=== PATIENT | female | born 1990 | race Caucasian/White ===

== ENCOUNTER 2019-04-06 09:04 | Outpatient (REF) | payer BC, SELFPAY ==
--- NOTE | 2019-04-05 08:40 | PAPFT_PTH ---
PATIENT: Dipti Rodriguez LOC: [facility] U#:[id number] AGE/SX: 28/F ROOM: RE04/06/[address]: Nisha Hackett NP : 1990 BED: DIS: 04/06/2019 SPEC #: [id number] RECD: 04/06/19 13:02 STATUS: BLANCA ALVA #: [id number] MARCELA: 04/05/19 08:[address]: Nisha Hackett NP DEPT: [facility] Cytology RECD BY: Radha Lowe ENTERED: 04/06/19 13:03 SP TYPE: PAPFT OTHR DR: Niles Arenas Tissues: 1 - CX/ENDOCX FOR PAP SMEARS Procedures: PAP THIN PREP/UVM Screening HPV DNA PROBE Comments: [id number]
== END 2019-04-06 09:24 ==
LOC: LBN 09:04
PROVIDERS: PCP Internal Medicine; Visit Provider Nurse Practitioner Women's Health
DX: Z12.4 Encounter for screening for malignant neoplasm of cervix (principal); Z11.51 Encounter for screening for human papillomavirus (HPV)
CPT/HCPCS: 88142; 87624

== ENCOUNTER 2020-05-09 03:17 | Outpatient (CLI) | payer BC, SELFPAY ==
[2020-05-09 11:06] LABS: Abs Immature Grans 0.03 k/cumm (0.0-0.09); Absolute Basophil Count 0.02 k/cumm (0.0-0.2); Absolute Eosinophil Count 0.04 k/cumm (0.0-0.7); Absolute Lymphocyte Count 1.94 k/cumm (1.2-3.4); Absolute Monocyte Count 0.46 k/cumm (0.11-0.7); Absolute Neutrophil Count 5.39 k/cumm (1.2-6.7); Basophils % 0.3; Eosinophils % 0.5; HCT 36.3 % (36.0-46.0); HGB 12.6 g/dL (12.0-15.5); Immature Grans % 0.4 %; Lymphocytes % 24.6; Mean Corp. HGB Concentration 34.7 g/dL (32.0-36.0); Mean Corpuscular Hemoglobin 27.8 pg (27.0-33.0); Mean Corpuscular Volume 80.1 fL (80-95); Mean Platelet Volume 9.5 fL (8.0-11.0); Monocytes % 5.8; Neutrophils % 68.4; Platelet Count 275 x1000/uL (130-400); RBC 4.53 m/cumm (4.00-5.20); RBC Distribution Width 13.4 % (11.7-14.6); White Blood Cell Count 7.88 k/cumm (4.4-10.8)
[2020-05-09 11:18] LABS: Kit/Specimen SENT
[2020-05-09 12:06] LABS: TSH (W/Ref FT4) 1.06 uIU/mL (0.36-3.74)
[2020-05-09 14:08] LABS: *AMPHETAMINES SCREEN URINE Negative (Negative); *BARBITURATES SCREEN URINE Negative (Negative); *BENZODIAZEPINES SCREEN URINE Negative (Negative); Cannabinoids THC Negative (Negative); Cocaine Screen,Urine Negative (Negative); METHADONE URINE SCREEN Negative (Negative); OPIATES URINE SCREEN Negative (Negative)
[2020-05-09 14:10] LABS: Tricyclic Antidepressants Negative (Negative)
[2020-05-10 09:22] LABS: Hepatitis B Surface Ag Negative (Negative)
[2020-05-10 10:03] LABS: HIV-1/2 Ag & Ab Screen Negative (Negative)
[2020-05-10 10:10] LABS: Hepatitis C Ab w Rflx HCV PCR Negative (Negative)
[2020-05-10 10:17] LABS: Rubella IgG Ab (UVM) Positive (See Note); Varicella IgG Antibody Positive (See Note)
[2020-05-10 14:48] LABS: Syphilis Total Ab w/Reflex Nonreactive (Nonreactive)
[2020-05-11 17:44] LABS: Specimen WB Whole Blood
[2020-05-15 10:51] LABS: Buprenorphine Negative; Norbuprenorphine Negative
[2020-05-16 17:22] LABS: Result Summary NEGATIVE; Specimen WB Whole Blood
== END 2020-05-09 03:37 ==
PROVIDERS: PCP Internal Medicine; Visit Provider Advanced Practice Midwife
DX: Z34.91 Encounter for supervision of normal pregnancy, unspecified, first trimester (principal); Z3A.12 12 weeks gestation of pregnancy; Z36.89 Encounter for other specified antenatal screening
CPT/HCPCS: 36415; 80307; 81329; 86787; 86803; 86850; 86900; 86901; 87077; 87340; 87389; 81220; 84443; 85025; 86762; 86780; 87086; 87186

== ENCOUNTER 2020-06-14 01:43 | Outpatient (CLI) | payer BC, SELFPAY ==
[2020-06-15 15:50] LABS: Calculated age at EDD 32 years; Cigarette smoking status non-Smoker; GA used in risk estimate Scan estimate; IVF Pregnancy No; Initial or repeat testing Initial testing; Insulin dependent diabetes No; Maternal Weight 145 lbs; Number of Fetuses 1; Physician Phone Number 802-748-7300; Prev Pregnancy w/NTD No; RECOMMENDED FOLLOW UP None.; Results Summary Normal risk
== END 2020-06-14 02:03 ==
PROVIDERS: Advanced Practice Midwife; PCP Internal Medicine; Visit Provider Obstetrics & Gynecology Gynecology
DX: Z34.90 Encounter for supervision of normal pregnancy, unspecified, unspecified trimester (principal)
CPT/HCPCS: 36415; 82105

== ENCOUNTER 2020-06-27 02:52 | Outpatient (CLI) | payer BC, SELFPAY ==
--- NOTE | 2020-06-27 08:21 | DI.US_ITS ---
EXAM: US OB 2-3 TRIMESTER CLINICAL HISTORY: anatomy scan,z34.90, TECHNIQUE: Ultrasound performed using standard protocol. COMPARISON: No exams were available for comparison FINDINGS: Ob ultrasound was performed utilizing 2nd trimester protocol. Note is made of an anterior uterine fi broid measuring about 35 millimeters in diameter. biometry is consistent with a gestational age of 19 weeks 2 days and EDC of November 19. There is visually a normal quantity of amniotic fluid. Placenta is posterior and there is no evidenc e of placenta previa. anomaly screen is within normal limits as per the attached checklist. heart rate is 162 BPM. IMPRESSION: DATA REPOSITORY:
== END 2020-06-27 03:12 ==
PROVIDERS: PCP Internal Medicine; Visit Provider Advanced Practice Midwife
DX: Z34.92 Encounter for supervision of normal pregnancy, unspecified, second trimester (principal)
CPT/HCPCS: 76805

== ENCOUNTER 2020-08-22 05:29 | Outpatient (CLI) | payer BC, SELFPAY ==
[2020-08-22 13:10] LABS: HCT 33.2 % (36.0-46.0); MCH 27.8 pg (27.0-33.0); MCHC 33.1 % (32.0-36.0); MCV 84.1 fL (80-95); MPV 9.4 fL (8.0-11.0); Platelet Count 251 10^3/uL (130-400); RBC 3.95 10^6/uL (3.93-5.22); RDW 13.1 % (11.7-14.6); RDW-SD 39.5 fL; WBC 10.18 10^3/uL (4.4-10.8)
[2020-08-22 13:12] LABS: Glucose,1 Hr (Glucola) 96 mg/dL (80-140)
== END 2020-08-22 05:49 ==
PROVIDERS: PCP Internal Medicine; Visit Provider Advanced Practice Midwife
DX: Z34.93 Encounter for supervision of normal pregnancy, unspecified, third trimester (principal); Z3A.27 27 weeks gestation of pregnancy
CPT/HCPCS: 36415; 82950; 85027; 86850; 90384

== ENCOUNTER 2020-09-20 14:36 | Outpatient (REF) | payer BC, SELFPAY ==
[2020-09-26 12:09] LABS: Chlamydia Result Negative (Negative)
[2020-09-26 12:19] LABS: GC Result Negative (Negative)
== END 2020-09-20 14:56 ==
LOC: LBN 14:36
PROVIDERS: PCP Internal Medicine; Visit Provider Advanced Practice Midwife
DX: Z34.93 Encounter for supervision of normal pregnancy, unspecified, third trimester (principal)
CPT/HCPCS: 87491; 87591

== ENCOUNTER 2020-10-23 13:29 | Outpatient (REF) | payer BC, SELFPAY ==
[2020-10-23 14:38] LABS: Tricyclic Antidepressants Negative (Negative)
[2020-10-23 14:50] LABS: *AMPHETAMINES SCREEN URINE Negative (Negative); *BARBITURATES SCREEN URINE Negative (Negative); *BENZODIAZEPINES SCREEN URINE Negative (Negative); Cannabinoids THC Negative (Negative); Cocaine Screen,Urine Negative (Negative); METHADONE URINE SCREEN Negative (Negative); OPIATES URINE SCREEN Negative (Negative)
[2020-10-30 14:50] LABS: Buprenorphine Negative; Norbuprenorphine Negative
== END 2020-10-23 13:49 ==
LOC: LBN 13:29
PROVIDERS: PCP Internal Medicine; Visit Provider Advanced Practice Midwife
DX: Z34.93 Encounter for supervision of normal pregnancy, unspecified, third trimester (principal); Z36.85 Encounter for antenatal screening for Streptococcus B; Z3A.36 36 weeks gestation of pregnancy
CPT/HCPCS: 80307; 87081

== ENCOUNTER 2020-11-21 00:04 | Inpatient (IN) | payer BC, SELFPAY ==
[2020-11-21] VITALS (47 sets, daily range): BP systolic 83–134; BP diastolic 48–79; PULSE 61–136; RESP 14–20; TEMP 36.6–37; O2SAT 96–100
--- NOTE | 2020-11-21 01:23 | W.PM.OBHPL1 ---
Date of service: 11/21/20 Time of Service: : Assessment and Plan Assessment and plan (1) Spontaneous onset of labor: Status: Acute Assessment and plan: Admit to Center for observation. Will continue to assess labor pattern. Full admission and covid testing with cervical change. OB-HPI Labor/Delivery History of Present Illness Reason for Visit: RULE OUT LABOR Chief Complaint: Uterine Contractions. MAURO Calculator Estimated Delivery Date Method Current WG Current Estimate 11/20/20 LMP (Certain) 40w 1d Other Estimates 11/21/20 Ultrasound #1 40w 0d History of Present Expected Delivery Route/Plan - CNM FOB/ - Mike Massey (first baby together) Would like to meet the MD radiotelephone technical operator when she is in labor just in case she needs MD care during labor. wishes discussed- open to epidural. BB Timur no circ GBS negative Specific Issues/Plan 1. desires all AP screening tests, form signed, drawn 05/09/20.- 1a. desires AFP single marker at 16-20 wks: drawn 06/06, low risk for NTD 1b. SMA & CF carrier screen negative 1c. [place] result low prob x3, male 2. Rh negative; RhoGam at 28 wks done 08/22/20 3. UTI +ecoli at initial OB urine C&S, Rx'ed MacroBid 100 mg BID x7 days Assessment: History Reviewed & Current [facility] Surgical History (Updated 09/20/20 @ 09:06 by Sharon Rehman CNM) S/P arthroscopic surgery of left knee Family History Mother Sleep apnea Essential hypertension Kidney calculi Grandfather , 70 Diabetes Social History Smoking/Tobacco Use Status: Never Smoking risk assessment performed?: Yes Female Reproductive History Menstrual Age of Menarche: 12 control method: pills History History 1 Para 0 Hx # Term Pregnancies 0 Multiple births 0 Hx # Pregnancies 0 Ectopic pregnancies 0 AB induced 0 Hx Number of Living Children 0 AB spontaneous 0 Meds Home Medications and Allergies Home Medications Medication Instructions Recorded Confirmed Type cholecalciferol (vitamin D3) 75 75 mcg PO DAILY 04/28/20 12/23/20 History mcg (3,000 unit) tablet vit no.95-ferrous 1 tab PO DAILY 03/20/20 11/14/20 History fumarate 28 mg-folic acid 800 mcg tablet Allergies Allergy/AdvReac Type Severity Reaction Status Date / Time No Known Allergies Allergy Unverified 11/14/20 08:48 Exam Physical Exam Vital signs: Temp Pulse Resp BP 97.8 F 72 16 125/78 11/21/20 00:27 11/21/20 00:17 11/21/20 00:27 11/21/20 00:17 Vital Signs Reviewed: Yes Constitutional Constitutional: mild distress Detailed Labor and Delivery Exam Dilation: 1.5 Effacement (%): 75 station: -1 Cervix position: mid Consistency: soft Bunch Score: Cervical Points Exam 0 1 2 3 Dilation Closed 1-2cm 3-4 cm 5-6cm Effacement 0-30% 40-50% 60-70% 80% Consistency Firm Medium Soft Station -3 -2 -1,0 +1,+2 Position Posterior Mid Anterior Amniotic Membrane Status: Intact Contraction Intensity: Mild/Moderate Fetus A Heart Rate Baseline: 130 Monitor Accelerations: 15 X 15 Monitor Decelerations: None Variability: Moderate (6-25 BPM) Presentation: Cephalic Categories: Category I Respiratory Exam Respiratory Exam: Normal Cardiovascular Exam Cardiovascular Exam: Normal Abdominal Exam Abdominal Exam: Normal Exam Exam: Normal Extremities Exam Extremities Exam: Normal Back/Spine/Pelvis Exam Back Exam: Normal Psychiatric Exam Psychiatric Exam: Normal Results Results Group Beta Strep: Negative Risk Assessment Risk for Shoulder Dystocia Historical/Initial OB: NEGATIVE FOR: Pelvic Abnormality, Pre- BMI>30, Previous Shoulder Dystocia or Previous Macrosomia 40 Weeks: NEGATIVE FOR: EFW> 4500 gms, Maternal Weight Gain >40lb or Post Dates Increased Risk?: No Delivery Plan @ 36wks: spont labor, Risk for Pre-Eclampsia Daily Dose ASA Indicated: No Date Initiated/Initials: 05/09/20 jk Yes, if one or more: NEGATIVE FOR: Hx Pre-E/Gest HTN, Chronic HTN, Multiple Gestation, Pre-gestational DM, Renal Disease, Systemic Lupus or APA Syndrome Yes, if 2 or more: POSITIVE FOR: Nulliparity; NEGATIVE FOR: Age>= 35 yrs, >10yr btwn pregnancies, BMI>30, ethinicty, Mother/Sister w/ Pre-E or Previous IUGR Risk for Post- Hemorrhage Initial: NEGATIVE FOR: Multiple Gestation, Previous PPH, Known Clotting Deficiency, Grand Multiparity or Anticoagulation At Risk?: No Risks Reviewed Risks Reviewed Upon Admission: Yes
[2020-11-21 04:13] LABS: HGB 12.4 g/dL (11.2-15.7); MCH 26.3 pg (27.0-33.0); MCHC 32.6 % (32.0-36.0); MCV 80.7 fL (80-95); Platelet Count 297 10^3/uL (130-400); RBC 4.71 10^6/uL (3.93-5.22); RDW 13.4 % (11.7-14.6); RDW-SD 39.3 fL
[2020-11-21] MEDS: Lactated Ringers 1,000 ML 125 ML IV (05:00)
--- NOTE | 2020-11-21 06:08 | W.PM.OBNL1 ---
Date of service: 11/21/20 Time of Service: 06:08 Informed Consent Informed Consent: Regional Anesthesia Pelvic Exam Dilation: 5 Effacement (%): 100 station: +1 Cervix Position: anterior Consistency: soft Vaginal Exam Presentation: Cephalic Pooling: Negative Contractions Monitor Mode: External Contraction Frequency(min): Every 2-3 min Intensity: Strong Fetus A Monitor: External (US) Heart Rate Baseline: 130 Presentation: Vertex Variability: Moderate (6-25 BPM) Categories: Category I FHR Rhythm: Regular Characteristics: Normal Accelerations: 15 X 15 Decelerations: None Amniotic Membrane Status: Intact Assessment and Plan Assessment and plan (1) Spontaneous onset of labor: Status: Acute Assessment and plan: Epidural placed by Josette Lara CRNA. Continue to assess labor progress. Anticipate . rest encouraged. Objective Abnormal lab results 11/21/20 Range/Units 03:40 WBC 13.90 H (4.4-10.8) 10^3/uL MCH 26.3 L (27.0-33.0) pg Temp Pulse Resp BP Pulse Ox 98.4 F 77 20 134/79 99 11/21/20 03:45 11/21/20 06:07 11/21/20 04:30 11/21/20 06:04 11/21/20 06:07 Laboratory Results WBC 13.90 10^3/uL (4.4-10.8) H 11/21/20 03:40 RBC 4.71 10^6/uL (3.93-5.22) 11/21/20 03:40 Hgb 12.4 g/dL (11.2-15.7) 11/21/20 03:40 Hct 38.0 % (36.0-46.0) 11/21/20 03:40 MCV 80.7 fL (80-95) 11/21/20 03:40 MCH 26.3 pg (27.0-33.0) L 11/21/20 03:40 MCHC 32.6 % (32.0-36.0) 11/21/20 03:40 RDW 13.4 % (11.7-14.6) 11/21/20 03:40 Plt Count 297 10^3/uL (130-400) 11/21/20 03:40 MPV 10.0 fL (8.0-11.0) 11/21/20 03:40 Patient ABO/Rh A Negative 11/21/20 03:40 Antibody Screen Positive 11/21/20 03:40 Antibody Identification Anti-D 11/21/20 03:40 Subjective Patient Reports: New Complaints Interval history since last seen: Strong regular contractions. Cervix was 3 cms at 0300 and she was admitted. She used nitrous oxide with good effect. She was examined at 0430 when she requested an epidural for pain relief. Results Hemoglobin/Hematocrit: Hgb 12.4 g/dL (11.2-15.7) 11/21/20 03:40 Hct 38.0 % (36.0-46.0) 11/21/20 03:40 Abnormal Lab Findings: Abnormal Labs 11/21/20 03:40 WBC 13.90 H MCH 26.3 L
[2020-11-21] MEDS: Bupivacaine 0.25% Pres-Free 10 ML VIAL EP (06:29)
[2020-11-21] MEDS: fentaNYL 100 MCG/2 ML VIAL EP (06:29)
[2020-11-21] MEDS: FentaNYL/ROPIvacaine 2 mcg/ml and 0.1% 200 ML CADD Cassette EP (06:30)
--- NOTE | 2020-11-21 06:57 | ANES_ITS ---
Date of service: 11/21/20 Time of Service: 06:03 Anesthesia Note Continuous Labor Epidural Chart reviewed, report from midlevel provider, consent obtained. Sitting position, chloraprep, sterile drape, 1% lidocaine skin wheal, 18 ga Touhy needle with loss of resistance at 7cm at L3-4, catheter threaded to 13 cm without resistance. Ne gative heme, negative CSF. Negative test dose. Bolus dose of 7ml 0.25% Bupivicaine and 100mcg of Fentanyl in 2-3cc increments at 0613. Tolerated well. VSS. Large tegaderm with Mastisol applied. Ropivicaine 0.1%/Fentanyl 2mcg infusion started at 0632. Pain level 0/10 post procedure.
[2020-11-21] MEDS: Oxytocin/Normal Saline 30 UNIT/500 ML BAG 95 UNITS IV (10:10)
--- NOTE | 2020-11-21 10:48 | W.OBDELIVERY ---
Date of service: 11/21/20 Time of Service: 10:48 OB Labor/ Delivery Information Baby A Delivery Delivery Method: Spontaneaous Presentation: Cephalic Cephalic Position: Vertex Cord Description-Baby A: 3 Vessels Amniotic Fluid: Clear Delivery Outcome: Liveborn Transferred: Remains with Mother Note: Good effect from epidural and Dipti rested and progressed to full dilation. The membranes ruptured artificially for clear fluid and she began pushing very well in various positions.. FHTs 130s during first stage of labor. FHTs 130s in second stage with variable decelerations associated with pushing. Progressed to full dilation and began pushing. Spontaneous delivery of male delivered in DANIEL position. Baby was placed on mother's abdomen and dried and stimulated. Spontaneous cry. Cord was clamped and cut by the baby's father . The placenta delivered spontaneously and appears to by intact with a three vessel cord. Pitocin 30 units IV was administered after delivery of the placenta. The perineum was inspected and bilateral ana-eurethral lacerations were re-approximated with 4-0 vicryl suture under epidural analgesia . The baby did breastfeed. After delivery, Mother and baby and father of the baby were stable and bonding well in the delivery room. Labor/Delivery Information Steroids Given: None Reason Steroids Not Administered: N/A Group Beta Strep: Negative Antibiotics Administered: No Rubella Status: Immune Blood Type: A- Varicella Immunity: Immune Born En Route: No Maternal Complications: None Shoulder Dystocia: No Stages of Labor Onset of Labor Date: 11/21/20 Onset of Labor Time: 03:00 Baby A Infant Gender: Male Gestational Status: Term (39-41.6 wks) Weight Comment: weight pending Score-1 Minute Interval(Baby A) Heart Rate-1 minute: 100 BPM or Greater Respiratory Effort- 1 minute: Spontaneous/Strong Cry Muscle Tone-1 minute: Active Movement Reflex Response-1 minute: Prompt Response Color-1 minute: Bluish Hands or Feet Score-5 Minute Interval(Baby A) Heart Rate- 5 minute: 100 BPM or Greater Respiratory Effort-5 minute: Spontaneous/Strong Cry Muscle Tone-5 minute: Active Movement Reflex Response-5 minute: Prompt Response Color-5 minute: Bluish Hands or Feet Interventions Repair of Laceration Type: Periurethral (bilateral superficial with right labial extension. repaired) , Laceration Extension: First Degree (repaired with two interrupted sutures) .
[2020-11-21] MEDS: Hamamelis Leaf/Glycerin 100 EACH BOX PR (15:30)
[2020-11-21 21:53] LABS: COVID-19 RT-PCR UVMMC Result Negative (Negative)
[2020-11-22 00:30] VITALS: BP 94/54; PULSE 63; RESP 16; O2SAT 98
[2020-11-22 06:39] VITALS: BP 91/58; PULSE 80; RESP 16; TEMP 36.8; O2SAT 97
[2020-11-22 06:47] LABS: HCT 33.3 % (36.0-46.0); MCH 26.5 pg (27.0-33.0); MCV 80.2 fL (80-95); MPV 10.1 fL (8.0-11.0); Platelet Count 242 10^3/uL (130-400); RBC 4.15 10^6/uL (3.93-5.22); RDW 13.8 % (11.7-14.6); WBC 14.67 10^3/uL (4.4-10.8)
[2020-11-22] MEDS: Ibuprofen 600 MG TAB PO (07:03)
[2020-11-22 07:40] VITALS: BP 106/68; PULSE 67; RESP 16; TEMP 36.8; O2SAT 97
[2020-11-22 09:24] VITALS: BP 108/70; PULSE 89; RESP 16; TEMP 36.5; O2SAT 97
--- NOTE | 2020-11-22 15:13 | W.PM.OBPNV1 ---
Date of service: 11/22/20 Time of Service: 15:28 Assessment and Plan Assessment and plan (1) Encounter for care and examination after delivery: Status: Acute Assessment and plan: Pt is PPD#!. S/P of live male infant, under epidural. Post course unrmarkable. Breast feeding attempts wnl, making use of L?. Exam wnl RH neg, needed and rec'd rhogam. Desires POP as bcm. Wishes to be d/c'd today. W/O contraindication to same. Exam Physical Exam Vital signs: Temp Pulse Resp BP Pulse Ox 97.7 F 89 16 108/70 97 11/22/20 09:24 11/22/20 09:24 11/22/20 09:24 11/22/20 09:24 11/22/20 09:24 Vital Signs Reviewed: Yes Constitutional Constitutional: no acute distress and average body habitus HEENT Exam HEENT Exam: Normal Breast Exam breasts soft non-tender, w/o erythema. r nipple w/ slight erythema w/o break in skin.: Breast Exam: Normal Nipple Exam: Normal Comments: as above r nipple and areola w/ slight erythema. Cardiovascular Exam Cardiovascular Exam: Normal Fundal Exam Fundus: Below Umbilicus (u/3) Exam Perineum: Repair Intact External: Present normal urethra appearance Extremities Exam Extremity Exam: Normal and Full ROM Skin Exam Skin Exam: Normal Psychiatric Exam Psychiatric Exam: Normal Results Hemoglobin/Hematocrit: Hgb 11.0 g/dL (11.2-15.7) L 11/22/20 06:32 Hct 33.3 % (36.0-46.0) L 11/22/20 06:32 Abnormal Lab Findings: Abnormal Labs 11/21/20 11/22/20 03:40 06:32 WBC 13.90 H 14.67 H Hgb 11.0 L Hct 33.3 L MCH 26.3 L 26.5 L
--- NOTE | 2020-11-22 15:28 | W.PM.OBDISCH ---
Date of service: 11/22/20 Time of Service: 15:29 DS: Diagnosis Discharge Diagnosis (1) Encounter for care and examination after delivery: Status: Acute Discharge Plan Disposition Patient Disposition: HOME Condition: Good Discharge Details Reason For Visit: LABOR Admit Date/Time: 11/21/20 00:04 Admit Provider: Penny Adan Attending Provider: Penny Adan Primary Care Provider: Niles Arenas Home Meds and New Rx's Prescriptions: No Action PNV cmb#95-ferrous fumarate-FA [ Multivitamins] 28 mg iron- 800 mcg tablet 1 tab PO DAILY RF: 0 cholecalciferol (vitamin D3) 75 mcg (3,000 unit) tablet 75 mcg PO DAILY RF: 0 norethindrone (contraceptive) [Victoria] 0.35 mg tablet 0.35 mg PO DAILY Qty: 28 RF: 11 Discharge Instructions Stand Alone Forms: BC Instructions, BC Post Vaginal Deliver Activity:: self & care x2 wks Equipment/Supplies:: No Equipment Needed Diet:: As Tolerated Discharge Orders Discharge Orders: Discharge Order (Routine); Ordered 11/22/20 Ordered By: Sharon Rehman Discharge Data Discharge Date/Time-TO BE ENTERED AT DEPARTURE: 11/22/20 16:24 OB:DS Summary Summary Vaginal Delivery Method: Spontaneaous Episiotomy Description: None Laceration Description: Perineal and Periurethral Laceration Extension: First Degree Contraception Discussed Contraception Discussed: Yes, Gender-Baby A: Male Status at Discharge Functional status at discharge: independent ambulation Overall status at discharge: patient is back to baseline Mental Status: mental status grossly normal Speech and Movement: speech and movement normal Mood: congruent mood Affect: normal affect Exam Physical Exam Vital signs: Temp Pulse Resp BP Pulse Ox 97.7 F 89 16 108/70 97 11/22/20 09:24 11/22/20 09:24 11/22/20 09:24 11/22/20 09:24 11/22/20 09:24 Vital Signs Reviewed: Yes Constitutional Constitutional: no acute distress and average body habitus HEENT Exam HEENT Exam: Normal Neck Exam Neck Exam: Normal Breast Exam breast soft non-tender, nipples and areola intact, yet r nipple & areola w/ slight erythema, no brakes in skin: Breast Exam: Other (see above) Nipple Exam: Other (see above) Respiratory Exam Respiratory Exam: Normal Cardiovascular Exam Cardiovascular Exam: Normal Fundal Exam Fundus: Below Umbilicus and Firm Comment: u/3 Exam Perineum: Repair Intact External: Present normal urethra appearance and discharge (lsbr w/o clots) Extremities Exam Extremity Exam: Normal and Full ROM Comment: homans neg Psychiatric Exam Psychiatric Exam: Normal [facility] Medical History (Updated 12/05/20 @ 12:21 by Penny Adan CNM) 12 weeks gestation of 27 weeks gestation of Missed menses Rh negative status during Spontaneous onset of labor Surgical History S/P arthroscopic surgery of left knee Family History Mother Sleep apnea Essential hypertension Kidney calculi Grandfather , 70 Diabetes Social History Smoking/Tobacco Use Status: Never Smoking risk assessment performed?: Yes Alcohol Intake: former Substance use type: does not use Female Reproductive History Menstrual Age of Menarche: 12 control method: pills History History 1 Para 1 Hx # Term Pregnancies 1 Multiple births 0 Hx # Pregnancies 0 Ectopic pregnancies 0 AB induced 0 Hx Number of Living Children 1 AB spontaneous 0 Past Pregnancies Del. Date GA/Weeks # Outcome Route Wgt Sex Labor Lgth Anesthesia Location Prov Complic 11/21/20 40 No Successful vaginal Male regional [facility]ons Delivery Date: 11/21/20 Elham Montesinos DS: Data Vitals/I&O Vitals and I&O: Vital Signs Temperature 97.7 F 11/22/20 09:24 Temperature Source Tympanic 11/22/20 07:40 Pulse 89 11/22/20 09:24 Pulse Rhythm Regular 11/22/20 07:40 Respiratory Rate 16 11/22/20 09:24 Blood Pressure 108/70 11/22/20 09:24 Blood Pressure Mean 67 11/22/20 00:30 Pulse Oximetry 97 11/22/20 09:24 Oxygen Delivery Method Room Air 11/22/20 09:24 Oxygen Flow Rate 0 11/22/20 09:24 Pain Level 3 11/22/20 08:03 Comment 11/22/20 07:40 Intake & Output 11/21/20 11/22/20 11/22/20 23:59 11:59 23:59 Output Total 700 / 1000 Balance -700 / -306.90 Weight 168 lb Output: Urine 700 / 1000 Other: Urine Color Bright Red Urine Appearance Hematuria Clots Urine Odor Normal Comment Patient attempted to urinate but was unable. Voiding Methods Toilet Data Completed and Pending Labs on day of discharge: Labs from last 24 hours 11/22/20 11/22/20 11/21/20 06:32 06:30 05:20 WBC 14.67 H RBC 4.15 Hgb 11.0 L Hct 33.3 L MCV 80.2 MCH 26.5 L MCHC 33.0 RDW 13.8 Plt Count 242 MPV 10.1 SARS-CoV-2 (PCR) Negative Nasopharyn COVID-19 PCR Not Applicable Ref Test Perform Site [facility] lab Patient ABO/Rh Antibody Screen Antibody Identification Screen Pending Unit Expiration Date Product Lot # 11/21/20 03:40 WBC RBC Hgb Hct MCV MCH MCHC RDW Plt Count MPV SARS-CoV-2 (PCR) Nasopharyn COVID-19 PCR Ref Test Perform Site Patient ABO/Rh A Negative Antibody Screen Positive Antibody Identification Anti-D Screen Unit Expiration Date 04/07/2022 Product Lot # [id number]
[2020-11-22] MEDS: Docusate Sodium 100 MG CAP PO (16:22)
--- NOTE | 2020-11-22 17:50 | NUR.NOTE ---
Nursing Note: 1600: Small bruise noted on left nipple and small blister noted beneath right nipple prior to discharge. Patient was given the hydrogel pads and mother's love and instructed on proper LATCH for baby to prevent further nipple damage
== END 2020-11-22 16:24 | disposition home or self-care (01) | DRG 807 ==
PROVIDERS: Admitting Provider Advanced Practice Midwife; PCP Internal Medicine; Visit Provider Advanced Practice Midwife
DX: O36.0930 Maternal care for other rhesus isoimmunization, third trimester, not applicable or unspecified (principal); Z37.0 Single live birth; O70.0 First degree perineal laceration during delivery; Z3A.40 40 weeks gestation of pregnancy
CPT/HCPCS: 36415; 85027; 85461; 86850; 86900; 86901; 90384; U0003; 86870; J2790; J3010

== ENCOUNTER 2023-07-08 02:54 | Outpatient (CLI) | payer BC, SELFPAY ==
[2023-07-08 11:51] LABS: Panorama Kit Sent via Fed Ex
[2023-07-08 11:57] LABS: Abs Immature Grans 0.01 10^3/uL (0.0-0.06); Absolute Basophil Count 0.05 10^3/uL (0.0-0.2); Absolute Eosinophil Count 0.06 10^3/uL (0.0-0.7); Absolute Lymphocyte Count 1.67 10^3/uL (1.2-3.4); Absolute Monocyte Count 0.51 10^3/uL (0.1-0.8); Absolute Neutrophil Count 4.71 10^3/uL (1.2-6.7); Basophils % 0.7; Eosinophils % 0.9; HGB 12.9 g/dL (11.2-15.7); Immature Grans % 0.1; Lymphocytes % 23.8; MCH 26.9 pg (27.0-33.0); MCHC 33.9 % (32.0-36.0); MCV 79 fL (80-95); MPV 9.3 fL (8.0-11.0); Monocytes % 7.3; Neutrophils % 67.2; Platelet Count 263 10^3/uL (130-400); RBC 4.79 10^6/uL (3.93-5.22); RDW 13.4 % (11.7-14.6); RDW-SD 38.9 fL; WBC 7.01 10^3/uL (4.4-10.8)
[2023-07-09 09:54] LABS: Hepatitis C Ab w Rflx HCV PCR Negative (Negative)
[2023-07-09 10:17] LABS: HIV-1/2 Ag & Ab Screen Negative (Negative)
[2023-07-09 10:20] LABS: Rubella IgG Ab (UVM) Positive (See Note); Varicella IgG Antibody Positive (See Note)
[2023-07-09 12:54] LABS: Hepatitis B Surface Ag Negative (Negative)
[2023-07-09 22:34] LABS: Syphilis IgG w/Reflex Nonreactive (Nonreactive)
== END 2023-07-08 02:55 | disposition home or self-care (01) ==
LOC: LBO 02:56
PROVIDERS: Advanced Practice Midwife; PCP Internal Medicine; Visit Provider Advanced Practice Midwife
DX: Z34.91 Encounter for supervision of normal pregnancy, unspecified, first trimester
CPT/HCPCS: 36415; 86787; 86803; 86850; 86900; 86901; 87340; 87389; 85025; 86762; 86780

== ENCOUNTER 2023-07-08 11:45 | Outpatient (REF) | payer BC, SELFPAY ==
--- NOTE | 2023-07-08 11:30 | PAPFT_PTH ---
PATIENT: Dipti Rodriguez LOC: [facility] U#:[id number] AGE/SX: 32/F ROOM: RE07/08/[address]: Penny Adan : 1990 BED: DIS: 07/08/2023 SPEC #: [id number] RECD: 07/09/23 18:10 STATUS: BLANCA REQ #: [id number] MARCELA: 07/08/23 11:[address]: Penny Adan [facility] Cytology RECD BY: Marta Krause ENTERED: 07/09/23 18:11 SP TYPE: PAPFT OTHR DR: Niles Arenas Tissues: 1 - CX/ENDOCX FOR PAP SMEARS Procedures: PAP THIN PREP/UVM Screening HPV DNA PROBE Comments: [id number] (HPV 16 & 18/45)
[2023-07-08 14:22] LABS: *AMPHETAMINES SCREEN URINE Negative (Negative); *BARBITURATES SCREEN URINE Negative (Negative); *BENZODIAZEPINES SCREEN URINE Negative (Negative); Cannabinoids THC Negative (Negative); Cocaine Screen,Urine Negative (Negative); METHADONE URINE SCREEN Negative (Negative); OPIATES URINE SCREEN Negative (Negative)
[2023-07-08 14:23] LABS: Tricyclic Antidepressants Negative (Negative)
[2023-07-09 12:54] LABS: Chlamydia Result Negative (Negative); GC Result Negative (Negative)
[2023-07-14 13:36] LABS: Buprenorphine Negative ng/mL (Cutoff: 5.0); Norbuprenorphine Negative ng/mL (Cutoff: 2.5)
== END 2023-07-08 11:46 | disposition home or self-care (01) ==
LOC: LBN 11:45
PROVIDERS: PCP Internal Medicine; Visit Provider Advanced Practice Midwife
DX: Z34.93 Encounter for supervision of normal pregnancy, unspecified, third trimester (principal); Z11.3 Encounter for screening for infections with a predominantly sexual mode of transmission; Z12.4 Encounter for screening for malignant neoplasm of cervix; Z3A.11 11 weeks gestation of pregnancy; N89.8 Other specified noninflammatory disorders of vagina; Z11.51 Encounter for screening for human papillomavirus (HPV); R87.810 Cervical high risk human papillomavirus (HPV) DNA test positive
CPT/HCPCS: 80307; 80348; 87491; 87591; 88142; 87086; 87480; 87510; 87624; 87660

== ENCOUNTER 2023-11-05 02:02 | Outpatient (CLI) | payer BC, SELFPAY ==
[2023-11-05 09:37] LABS: HCT 33.6 % (36.0-46.0); HGB 10.9 g/dL (11.2-15.7); MCHC 32.4 % (32.0-36.0); MCV 80 fL (80-95); Platelet Count 272 10^3/uL (130-400); RDW-SD 37.2 fL; WBC 9.26 10^3/uL (4.4-10.8)
[2023-11-05 09:57] LABS: Glucose,1 Hr (Glucola) 86 mg/dL (80-140)
== END 2023-11-05 02:03 | disposition home or self-care (01) ==
LOC: LBO 02:02
PROVIDERS: Advanced Practice Midwife; PCP Internal Medicine; Visit Provider Advanced Practice Midwife
DX: Z34.93 Encounter for supervision of normal pregnancy, unspecified, third trimester (principal)
CPT/HCPCS: 36415; 82950; 85027; 86850; 90384

== ENCOUNTER → 2023-12-01 00:51 | Outpatient (CLI) | payer BC, SELFPAY ==
--- NOTE | 2023-12-01 07:45 | DI.US_ITS ---
Exam(s) US OB QUYNH WEIGHT EXAM: US OB QUYNH WEIGHT CLINICAL HISTORY: interval growth,advanced maternal age,z34.90. TECHNIQUE: Transabdominal obstetrical ultrasound was performed. COMPARISON: US US OB 2-3 TRIMESTER from 09/09/2023 FINDINGS: There is a single viable intrauterine gestation with cardiac activity identified-140 bpm The fetus is presently in cephalic position . Amniotic fluid: There is a normal amount of amniotic fluid with an QUYNH of 14.91cm. Placental location: The placenta is posterior fundal, grade 1,with no evidence of placenta previa.The distance from the tip of the placenta to the internal cervical os is [address] this at approximately 34 weeks and 1 day gestational age, implying MAURO of 01/11/2024. BPD measures 34 weeks and 2 days HC measures 35 weeks and 1 day AC measures 34 weeks and 3 days FL measures 32 weeks and 4 days Estimated weight is 2330 gm-bouts 2 ounces Fetus is at the 83rd percentile on the Hadlock scale. IMPRESSION:: Viable 3rd trimester gestation, as described above. DATA REPOSITORY:
== END ==
PROVIDERS: PCP Internal Medicine; Visit Provider Advanced Practice Midwife
DX: Z34.93 Encounter for supervision of normal pregnancy, unspecified, third trimester (principal)
CPT/HCPCS: 76816

== ENCOUNTER 2023-12-30 09:49 | Outpatient (REF) | payer BC, SELFPAY | END 2023-12-30 09:50 | disposition home or self-care (01) | LOC: LBN 09:49 | PROVIDERS: PCP Internal Medicine; Visit Provider Advanced Practice Midwife | DX: Z34.93 Encounter for supervision of normal pregnancy, unspecified, third trimester (principal); Z36.85 Encounter for antenatal screening for Streptococcus B; Z3A.36 36 weeks gestation of pregnancy | CPT/HCPCS: 87081 ==

== ENCOUNTER 2024-01-16 22:55 | Inpatient (IN) | payer BC, SELFPAY ==
[2024-01-16 22:46] VITALS: BP 111/71; PULSE 74; RESP 16; TEMP 36.4
--- NOTE | 2024-01-16 22:57 | W.PM.OBHPL1 ---
Date of service: 01/16/24 Time of Service: 22:57 Assessment and Plan Assessment and plan (1) Group B Streptococcus carrier, +RV culture, currently : Status: Acute Assessment and plan: penicillin per protocol for GBS prophylaxis. (2) Spontaneous onset of labor: Status: Acute Assessment and plan: Admit to the center. Anticipate . Comfort measures. prepare for epidural analgesia. OB-HPI Labor/Delivery History of Present Illness Chief Complaint: Uterine Contractions. MAURO Calculator Estimated Delivery Date Method Current WG Current Estimate 01/22/24 Ultrasound #1 39w 1d Other Estimates 01/15/24 LMP (Certain) 40w 1d Comments: Dipti called strong regular contractions since 170. History of Present Expected Delivery Route/Plan - CNM FOB/ - Mike Massey (2nd child together) BB no circ Plans epidural, doesn't like using nitrous GBS POSITIVE, plan PCN prophylaxis in labor Specific Issues/Plan 1. RH negative - Rhogam at 28 weeks, done 11/05/23 2. Advanced maternal age - [place] [facility] [place], 32 wk growth US: 83%ile, 14 QUYNH. 3. CF and SMA neg, AFP declined, Panorama cfDNA screen - low risk x5 4. Pap with high risk HPV - not 16 or 18, repeat in 1 year Assessment: History Reviewed & Current Informed Consent Informed Consent: Regional Anesthesia (Dipti desires epidural analgesia) PFSH All Active Problems (Updated 01/16/24 @ 23:00 by Penny Adan CNM) Spontaneous onset of labor (Acute) Group B Streptococcus carrier, +RV culture, currently (Acute) High risk HPV infection (Acute) Not 16 or 18 Advanced maternal age (AMA) in (Acute) Rh negative status during (Acute) (Acute) Medical History (Updated 01/16/24 @ 23:00 by Penny Adan CNM) Elevated liver enzymes Surgical History S/P arthroscopic surgery of left knee Family History Mother Sleep apnea Essential hypertension Kidney calculi Grandfather , 70 Diabetes Social History Smoking/Tobacco Use Status: Never Smoking risk assessment performed?: Yes Alcohol Intake: former Substance use type: does not use Female Reproductive History Menstrual Age of Menarche: 12 control method: none History History 2 Para 1 Hx # Term Pregnancies 1 Multiple births 0 Hx # Pregnancies 0 Ectopic pregnancies 0 AB induced 0 Hx Number of Living Children 1 AB spontaneous 0 Past Pregnancies Del. Date GA/Weeks # Preg Succ Route Wgt Sex Labor Lgth Anesthesia Location Prov Complic 11/21/20 40 No Yes vaginal 7 lb [address] [facility] CARMENZA Parsons Delivery Date: 11/21/20 Last Updated by: MALLORIE Courtney Meds Allergies and Home Medications Allergies Allergy/AdvReac Type Severity Reaction Status Date / Time No Known Allergies Allergy Unverified 01/13/24 09:23 Home Medications Medication Instructions Recorded Confirmed Type cholecalciferol (vitamin D3) 75 75 mcg PO DAILY 03/20/20 01/13/24 History mcg (3,000 unit) tablet vit no.95-ferrous 1 tab PO DAILY 03/20/20 01/13/24 History fumarate 28 mg-folic acid 800 mcg tablet ( Multivitamins) Exam Physical Exam Vital signs: Temp Pulse Resp BP 97.5 F L 74 16 111/71 01/16/24 22:46 01/16/24 22:46 01/16/24 22:46 01/16/24 22:46 Vital Signs Reviewed: Yes Constitutional Constitutional: no acute distress Detailed Labor and Delivery Exam Dilation: 4 Effacement (%): 90 station: 0 Cervix position: posterior Consistency: soft Bunch Score: Cervical Points Exam 0 1 2 3 Dilation Closed 1-2cm 3-4 cm 5-6cm Effacement 0-30% 40-50% 60-70% 80% Consistency Firm Medium Soft Station -3 -2 -1,0 +1,+2 Position Posterior Mid Anterior Amniotic Membrane Status: Intact Monitor Mode: External Contraction Frequency(min): every 3 minutes Contraction Duration(sec): 60 Contraction Intensity: Moderate/Strong Fetus A Heart Rate Baseline: 130 Monitor Accelerations: 15 X 15 Monitor Decelerations: None Variability: Moderate (6-25 BPM) Presentation: Cephalic Categories: Category I Respiratory Exam Respiratory Exam: Normal Cardiovascular Exam Cardiovascular Exam: Normal Abdominal Exam Abdominal Exam: Normal Exam Exam: Normal Extremities Exam Extremities Exam: Normal Skin Exam Skin Exam: Normal Psychiatric Exam Psychiatric Exam: Normal Risk Assessment Risk for Shoulder Dystocia Historical/Initial OB: NEGATIVE FOR: Pelvic Abnormality, Pre- BMI>30, Previous Shoulder Dystocia or Previous Macrosomia 36 Weeks: NEGATIVE FOR: Current Gestational DM, EFW>4500gms or Maternal Weight Gain>40lbs 40 Weeks: NEGATIVE FOR: EFW> 4500 gms, Maternal Weight Gain >40lb or Post Dates Increased Risk?: No Delivery Plan @ 36wks: CRYSTAL MCLEAN Risk for Pre-Eclampsia Date Initiated/Initials: not indicated, KM Yes, if one or more: NEGATIVE FOR: Hx Pre-E/Gest HTN, Chronic HTN, Multiple Gestation, Pre-gestational DM, Renal Disease, Systemic Lupus or APA Syndrome Yes, if 2 or more: POSITIVE FOR: Age>= 35 yrs; NEGATIVE FOR: Nulliparity, >10yr btwn pregnancies, BMI>30, ethinicty, Mother/Sister w/ Pre-E or Previous IUGR Risk for Post- Hemorrhage Initial: NEGATIVE FOR: Multiple Gestation, Previous PPH, Known Clotting Deficiency, Grand Multiparity or Anticoagulation 36 Weeks: NEGATIVE FOR: Anemia, hgb<10, Low platelets(thrombocytopenia), Gestational HTN or Pre-E, Polyhydraminios or EFW>4500gms 40 Weeks: NEGATIVE FOR: Anemia, hgb<10, Low platelets (thrombocytopenia), Gestation HTN or Pre-E, Polyhydraminios or EFW>4500gms At Risk?: No Risks Reviewed Risks Reviewed Upon Admission: Yes
[2024-01-16 23:17] LABS: HCT 31.6 % (36.0-46.0); HGB 10.3 g/dL (11.2-15.7); MCH 23.8 pg (27.0-33.0); MCHC 32.6 % (32.0-36.0); MPV 9.5 fL (8.0-11.0); Platelet Count 313 10^3/uL (130-400); RBC 4.33 10^6/uL (3.93-5.22); RDW 14.2 % (11.7-14.6); RDW-SD 37.2 fL; WBC 10.61 10^3/uL (4.4-10.8)
[2024-01-16 23:29] LABS: MCV 73 fL (80-95)
[2024-01-16] MEDS: Penicillin G POT. 5,000,000 UNITS in Normal Saline 100 ML 200 UNITS IVPB (23:33)
[2024-01-16] MEDS: Lactated Ringers 500 ML 125 ML IV (23:35)
[2024-01-16 23:56] VITALS: PULSE 88; O2SAT 99
[2024-01-16 23:58] VITALS: BP 112/73; PULSE 90
[2024-01-17] VITALS (45 sets, daily range): BP systolic 95–133; BP diastolic 56–86; PULSE 63–171; RESP 16–18; TEMP 36.4–37; O2SAT 84–100; BMI 26.3
[2024-01-17] MEDS: FentaNYL/ROPIvacaine 2 mcg/ml and 0.1% 200 ML CADD Cassette EP (00:15)
--- NOTE | 2024-01-17 00:36 | ANES.PREOP_ITS ---
General Info Date of Service Date Performed: 01/17/24 Height: 5 ft 6 in Weight: 73.936 kg Body Mass Index (BMI): 26.3 Meds Allergies and Home Medications Allergies Allergy/AdvReac Type Severity Reaction Status Date / Time No Known Allergies Allergy Unverified 01/13/24 09:23 Home Medication Medication Instructions Recorded cholecalciferol (vitamin D3) 75 75 mcg PO DAILY 03/20/20 mcg (3,000 unit) tablet vit no.95-ferrous 1 tab PO DAILY 03/20/20 fumarate 28 mg-folic acid 800 mcg tablet ( Multivitamins) Current Visit Medications: Current Medications Generic Name Dose Route Start Last Admin Trade Name Freq PRN Reason Stop Dose Admin Fentanyl/Ropivacaine 200 ml 01/16/24 23:30 01/17/24 00:15 Fentanyl/Ropivacaine 2 Mcg/Ml And 0.1% 200 Ml Cadd Cassette EP 200 ml DIRECTED NASREEN Administration Penicillin G Potassium 3,000, 50 mls @ 100 mls/hr 01/17/24 03:00 000 units/ Sodium Chloride IVPB Q4H [facility] IV Miscellaneous Supplies 1 each 01/16/24 23:00 Iv Access IV DIRECTED [facility] IV Miscellaneous Supplies 1 each 01/16/24 23:00 Iv Access IV DIRECTED [facility] Sodium Chloride 0 ml 01/16/24 22:55 Normal Saline Flush 10 Ml Syr IVP PRN PRN Sodium Chloride 0 ml 01/17/24 08:30 Normal Saline Flush 10 Ml Syr IVP BID NASREEN Sodium Chloride 0 ml 01/16/24 22:55 Normal Saline 10 Ml Vial IJ DIRECTED PRN Sodium Chloride 0 ml 01/16/24 22:56 Normal Saline Flush 10 Ml Syr IVP PRN PRN Sodium Chloride 0 ml 01/17/24 08:30 Normal Saline Flush 10 Ml Syr IVP BID NASREEN Sodium Chloride 0 ml 01/16/24 22:56 Normal Saline 10 Ml Vial IJ DIRECTED PRN PFSH Active Problems Active Problems: Problem Status Onset Code Spontaneous onset of labor Group B Streptococcus carrier, +RV culture, currently O99.820 High risk HPV infection B97.7 Advanced maternal age (AMA) in Rh negative status during O26.899, Z67.91 Z34.90 Medical History Medical History (Updated 01/16/24 @ 23:00 by Penny Adan CNM) Elevated liver enzymes Surgical History Surgical History S/P arthroscopic surgery of left knee Tobacco Smoking/Tobacco Use Status: Never Alcohol Alcohol Intake: former Substance Use Substance use type: does not use Prental History History 2 2 Para 1 Hx # Term Pregnancies 1 Multiple births 0 Hx # Pregnancies 0 Ectopic pregnancies 0 AB induced 0 Hx Number of Living Children 1 AB spontaneous 0 Past Pregnancies Del. Date GA/Weeks # Preg Succ Route Wgt Sex Labor Lgth Anesth esia Location Prov Compl 11/21/20 40 No Yes vaginal 3345.244 g Male [facility] CNM Delivery Date: 11/21/20 Last Updated by: MALLORIE Courtney Vital Signs and Lab Results Vital Signs Most Recent Vital Signs in EMR: Most Recent Vital Signs Temp Pulse Resp BP Pulse Ox 36.4 C L 93 H 16 116/60 98 01/16/24 22:46 01/17/24 00:33 01/16/24 22:46 01/17/24 00:33 01/17/24 00:32 Lab Results 01/16/24 23:10 Blood Type / Crossmatch: 2 Patient ABO/Rh A Negative 01/16/24 Antibody Screen POSITIVE 01/16/24 Complete Blood Count: 2 White Blood Count 10.61 10^3/uL (4.4-10.8) 01/16/24 23:10 Red Blood Count 4.33 10^6/uL (3.93-5.22) 01/16/24 23:10 Hemoglobin 10.3 g/dL (11.2-15.7) L 01/16/24 23:10 Hematocrit 31.6 % (36.0-46.0) L 01/16/24 23:10 Platelet Count 313 10^3/uL (130-400) 01/16/24 23:10 Complete Metabolic Panel: 2 No Data to Display Liver Function Panel: 2 No Data to Display Coagulation Panel: 2 No Data to Display Cardiac Panel: 2 No Data to Display Arterial Blood Gas: 2 No Data to Display Venous Blood Gas: 2 No Data to Display Pancreas Panel: 2 No Data to Display Thyroid Panel: 2 No Data to Display Infectious Disease: 2 No Data to Display Blood Cultures: 2 No Data to Display Toxicology Panel: 2 No Data to Display Panel: 2 No Data to Display Anesthesia Assessment and Plan Anesthesia History Personal History: No History of Anesthesia Complications Family History: No Family History of Anesthesia Complications Exercise Tolerance Exercise Tolerance: Metabolic Equivalents>4 Pertinent Negatives Pertinent Negatives: No Symptoms of GERD Cardiac & Pulmonary Exam Cardiac Exam: Normal S1/S2 Heart Sounds Pulmonary Exam: Clear Bilateral Breath Sounds Implantable Cardiac Device Does patient have a Pacemaker or an ICD?: No Airway Exam Known Difficult Airway: No Mallampati Class: 1 Mouth Opening: Normal (> 3cm) Thyromental Distance: Greater than 3 cm Neck Range of Motion: Full ROM Neck Circumference: Normal Teeth Condition: Normal Dentition ASA Classification ASA Score: ASA 2 Emergency Case?: No NPO Status NPO Status: NPO Clear Liquids>2 hours Status Status: Confirmed Anesthesia Plan Resuscitation Status: Full Code Anesthesia Technique: Labor Epidural Airway Planned: Natural Airway Monitors Used: Standard Monitors
--- NOTE | 2024-01-17 00:43 | ANES.NEUR_ITS ---
Epidural/Spinal Catheter Date Performed: 01/17/24 Procedure Start: 00:02 Procedure Stop: 00:20 Requesting Provider: Penny Adan Procedure Location: Obstetrics Reason Performed: Labor Epidural Standard Monitors Applied: ECG, Blood Pressure, SpO2 and See EMR for corresponding vital signs Patient Position: Sitting Sedation Given (Indicate Dose Given): No Sedation given Patient Mental Status: Awake Sterility: Hand Hygiene, Surgical Cap, Surgical Mask, Sterile Gloves, Sterile Drape/Sheet, Eye Protection and Chlorhexidine Procedure Location: L3-L4 Interspace Epidural Needle: Tuohy 18 Gauge Needle Length: 3.5 Inch Needle Approach: Midline Epidural Procedure: Skin Prepped, Sterile Drape Placed, 1% Lidocaine to skin and subcutaneous tissue with 25G needle, Tuohy Needle placed, YANE to Saline Used, Epidural Catheter Placed, Negative Heme, Negative CSF Flow and Tuohy Needle Removed Catheter Placed?: Catheter Placed Test Dose (Indicate Dose Given): 3ml 1.5% Lid ocaine with 1:200K Epinephrine Given and Negative Test Dose Loss of Resistance Depth (cm): 6 Catheter depth at skin (cm): 12 Dressing: Sorbaview Dressing Placed, Tegaderm Applied, Mastisol Used and Dressing reinforced with Tape Epidural Provider Bolus (Indicate Dose Given): Total Ropivacaine 0.1% with Fentanyl 2mcg/ml Given from pump. (ml) Dose:: 8cc Additives (Indicate Dose Given ): None Infusion Medication: Medication Infusion Began Medication Infusion: Ropivacaine 0.1% with Fentanyl 2mcg/ml Maintenance Infusion Rate (ml/hour): 11 PCEA Bolus Dose (ml): 5 Post Procedure Pain score (0-10): 4 Block Level: T7 Paresthesia: None Ultrasound: Used to keli site Number of Attempts (See previous attempts in note section): 1 Procedure Tolerated: No Complications and Patient tolerated well Procedure Outcome: Successful Performed By: Ruperto Hernandez
--- NOTE | 2024-01-17 01:53 | W.OBDELIVERY ---
Date of service: 01/17/24 Time of Service: 01:53 OB Labor/ Delivery Information Baby A Delivery Delivery Method: Spontaneaous Presentation: Cephalic Vertex Position: Right Occipital Posterior Cord Description-Baby A: 3 Vessels Amniotic Fluid: Clear Estimated Blood Loss: 100 Delivery Outcome: Liveborn Infant Transferred: Remains with Mother Note: Dipti received one dose of penicillin. An epidural was placed with good effect. Shortly after epidural, Dipti began experiencing pelvic pressure and was examined and found to be fully dilated with bulging membranes. Membranes were artificially ruptured for a mod amount of clear fluid. FHTs 140 during first stage of labor. FHTs 140 in second stage. Dipti began pushing well. Second stage huddle was done. There was terminal bradycardia and Dipti was encouraged to push and had a spontaneous delivery of male infant delivered in ROP position. Baby was placed on mother's abdomen and dried and stimulated. Spontaneous cry. Cord was clamped and cut by the baby's father. The placenta delivered spontaneously and appears to by intact with a three vessel cord. She did not require any medications after delivery. The perineum was inspected and was intact. A periclitoral abrasion was repaired with 4-0 vicryl suture under epidural analgesia . The baby did breastfeed. After delivery, Mother and baby and father of the baby were stable and bonding well in the delivery room and there were no complications. Labor/Delivery Information Group Beta Strep: Positive Antibiotics Administered: Yes Number of Doses of Antibiotics: 1 Rubella Status: Immune Blood Type: A- Varicella Immunity: Immune Born En Route: No Maternal Complications: None Shoulder Dystocia: No Stages of Labor ROM Baby A: 01/17/24 ROM Baby A: 00:50 Interventions Repair of Laceration Type: Other (periclitoral), Laceration Extension: N/A. Sponge Count Correct: No Sponges Placed in Vagina, Sharp Count Correct: Yes.
[2024-01-17] MEDS: Hamamelis Leaf/Glycerin 100 EACH BOX PR (06:16)
[2024-01-17] MEDS: Dibucaine 1% 28 GM TUBE TP (06:17)
--- NOTE | 2024-01-17 14:17 | ANES.POST_ITS ---
Postoperative Evaluation Date, Time and Location Date Performed: 01/17/24 Time Performed: 14:17 Patient Location: Obstetrics Vital Signs Most Recent Imported Vital Signs: Most Recent Vital Signs Temp Pulse Resp BP Pulse Ox 36.4 C L 68 16 100/65 98 01/17/24 12:35 01/17/24 12:35 01/17/24 12:35 01/17/24 12:35 01/17/24 12:35 Pain Score Most Recent Pain Score: Most Recent Pain Score Pain Level [Abdomen] 3 01/17/24 12:35 Pain Level 3 01/17/24 12:35 Assessment Mental Status: Awake (Alert & Oriented to Patient Baseline) Airway and Respiratory Function: Patent airway with normal (patient baseline) respiratory exam Cardiovascular Function: Hemodynamically Stable Hydration Status: Adequately Hydrated Nausea & Vomiting: No Nausea or Vomiting Pain: Pt. Denies Any Pain Peripheral Nerve Block: Patient did not receive a nerve block Postoperative Comments:: Epidural removed by RN after delivery. Pt comfortable with point tenderness at insertion site. Leni Hernandez, EQUITY ANALYST
--- NOTE | 2024-01-17 14:21 | ANES.NEUR_ITS ---
Epidural/Spinal Cath. Removal Date Performed: 01/17/24 Procedure Time: 02:00 Catheter Removal Type: Epidural Catheter Procedure Location: Obstetrics Patient Position: Sitting Catheter Removal Procedure: Dressing Removed, Catheter Removed without Resistance and Catheter Tip Intact Paresthesia: None Procedure Tolerated: No Complications and Patient tolerated well Procedure Outcome: Successful Procedure Comment:: Removed by staff midwife/apprenticeship director. Performed By: Ruperto Hernandez
[2024-01-18 04:00] VITALS: BP 102/67; PULSE 70; RESP 16; TEMP 36.3; O2SAT 98
[2024-01-18 08:00] VITALS: BP 100/75; PULSE 61; RESP 16; TEMP 36.6; O2SAT 98
--- NOTE | 2024-01-18 13:50 | DSE_ITS ---
Date of service: 01/18/24 Time of Service: 13:50 DS: Diagnosis Discharge Diagnosis (1) Term of male : Status: Resolved Asessment and Plan: Caring for baby independently. Pain is managed well with oral analgesics. Voiding without difficulty. well. A - stable mother and baby , Post day 1 P - Discharge to home today. Routine post instructions. Follow up at [facility]. Discharge Plan Disposition Patient Disposition: Home Condition: Good Discharge Details Reason For Visit: Labor Admit Date/Time: 01/16/24 22:55 Admit Provider: Penny Adan Attending Provider: Penny Adan Primary Care Provider: Niles Arenas Home Meds and New Rx's Prescriptions: No Action PNV cmb#95-ferrous fumarate-FA [ Multivitamins] 28 mg iron- 800 mcg tablet 1 tab PO DAILY cholecalciferol (vitamin D3) 75 mcg (3,000 unit) tablet 75 mcg PO DAILY Discharge Instructions Stand Alone Forms: BC Instructions, BC Post Vaginal Deliver Activity:: Activity as Tolerated Equipment/Supplies:: No Equipment Needed Diet:: As Tolerated Discharge Orders Discharge Orders: Discharge Order (Routine); Ordered 01/18/24 Ordered By: Penny Adan OB:DS Summary Summary Vaginal Delivery Method: Spontaneaous Episiotomy Description: None Laceration Description: Other (periclitoral) Laceration Extension: N/A Contraception Discussed Contraception Discussed: Yes Contraceptive Plan: Vasectomy, [place] Infant Gender-Baby A: Male Status at Discharge Functional status at discharge: independent ambulation Overall status at discharge: patient is back to baseline Mental Status: mental status grossly normal Speech and Movement: speech and movement normal Mood: congruent mood Affect: normal affect Quality:SDOH Health Related Social Needs: No Data to Display Exam Physical Exam Vital signs: Temp Pulse Resp BP Pulse Ox 97.9 F 61 16 100/75 98 01/18/24 08:00 01/18/24 08:00 01/18/24 08:00 01/18/24 08:00 01/18/24 08:00 Vital Signs Reviewed: Yes Constitutional Constitutional: no acute distress Respiratory Exam Respiratory Exam: Normal Cardiovascular Exam Cardiovascular Exam: Normal Fundal Exam Fundus: Below Umbilicus and Firm Exam External: Present normal urethra appearance; Absent erythema, swelling, tenderness or ecchymosis Extremities Exam Extremity Exam: Normal Skin Exam Skin Exam: Normal Psychiatric Exam Psychiatric Exam: Normal PFSH All Active Problems (Updated 01/18/24 @ 13:52 by Penny Adan CNM) Spontaneous onset of labor (Acute) High risk HPV infection (Acute) Not 16 or 18 Advanced maternal age (AMA) in (Acute) Rh negative status during (Acute) (Acute) Medical History (Updated 01/18/24 @ 13:52 by Penny Adan CNM) Elevated liver enzymes Surgical History S/P arthroscopic surgery of left knee Family History Mother Sleep apnea Essential hypertension Kidney calculi Grandfather , 70 Diabetes Social History Smoking/Tobacco Use Status: Never Smoking risk assessment performed?: Yes Alcohol Intake: former Substance use type: does not use Housing: house Female Reproductive History Menstrual Age of Menarche: 12 control method: none History History 2 Para 1 Hx # Term Pregnancies 1 Multiple births 0 Hx # Pregnancies 0 Ectopic pregnancies 0 AB induced 0 Hx Number of Living Children 1 AB spontaneous 0 Past Pregnancies Del. Date GA/Weeks # Preg Succ Route Wgt Sex Labor Lgth Anesth esia Location Prov Complic 11/21/20 40 No Yes vaginal 7 lb 6 oz Male 12 [facility] Lisa Adan CNM Delivery Date: 11/21/20 Last Updated by: MALLORIE Courtney DS: Data Vitals/I&O Vitals and I&O: Vital Signs Temperature 97.9 F 01/18/24 08:00 Temperature Source Oral 01/16/24 22:46 Temperature Source Tympanic 01/18/24 08:00 Pulse 61 01/18/24 08:00 Pulse Rhythm Regular 01/18/24 08:00 Respiratory Rate 16 01/18/24 08:00 Respiratory Depth Normal 01/16/24 23:45 Blood Pressure 100/75 01/18/24 08:00 Blood Pressure Mean 83 01/18/24 08:00 Pulse Oximetry 98 01/18/24 08:00 Oxygen Delivery Method Room Air 02/24/24 22:46 Oxygen Flow Rate 0 01/16/24 22:46 Pain Level 2 01/17/24 16:00 Intake & Output 01/17/24 01/18/24 01/18/24 23:59 11:59 23:59 Other: Urine Color Yellow Data Completed and Pending Labs on day of discharge: Labs from last 24 hours 01/17/24 01/16/24 07:10 23:10 Patient ABO/Rh A Negative Antibody Screen POSITIVE Antibody Identification Anti-D Screen Negative Rhogam Unit Number [id number] Unit Expiration Date 02/13/24 Product Lot # [id number]
== END 2024-01-18 14:05 | disposition home or self-care (01) | DRG 806 ==
LOC: BCD 23:12 → OBS 23:12
PROVIDERS: Admitting Provider Advanced Practice Midwife; PCP Internal Medicine; Visit Provider Advanced Practice Midwife
DX: O99.824 Streptococcus B carrier state complicating childbirth (principal); O36.0930 Maternal care for other rhesus isoimmunization, third trimester, not applicable or unspecified; Z37.0 Single live birth; Z3A.39 39 weeks gestation of pregnancy; O70.0 First degree perineal laceration during delivery
CPT/HCPCS: 36415; 85027; 85461; 86850; 86900; 86901; 90384; 86870; J2540; J2790